=== PATIENT | female | born 1995 | race Caucasian/White ===

== ENCOUNTER 2024-03-27 08:58 | Outpatient (CLI) | payer BC | END 2024-03-27 08:59 | disposition home or self-care (01) | LOC: ULT 08:58 | PROVIDERS: ATTEND Family Medicine | DX: R10.11 Right upper quadrant pain (principal) | CPT/HCPCS: 76705 ==

== ENCOUNTER 2024-04-11 10:28 | Outpatient (CLI) | payer BC | END 2024-04-11 10:29 | disposition home or self-care (01) | LOC: ULT 10:28 | DX: E04.2 Nontoxic multinodular goiter (principal) | CPT/HCPCS: 76536 ==